=== PATIENT | male | born 1985 | race Caucasian/White ===

== ENCOUNTER 2017-01-29 15:15 | Emergency (ER) | payer BC, OTHER ==
[~2017-01-29] VITALS: Ht 167.6 cm; Wt 68.0 kg
[2017-01-29 15:25] VITALS: Ht 167.6 cm; Wt 68.0 kg
[2017-01-29] MEDS ORDERED: KETOROLAC 60 MG INJ IM STA (16:14)
[2017-01-29] MEDS ORDERED: HYDROCODONE/APAP (10/325) TAB PO ONE (16:30)
[2017-01-29] MEDS ORDERED: TRAM50TA2 PO (16:44)
[2017-01-29] MEDS ORDERED: DOCU-144 PO (16:44)
[2017-01-29] MEDS ORDERED: HYDR25SU23 PR (16:44)
--- NOTE | 2017-01-29 16:48 | ERD ---
ER Documentation Chief Complaint Date/Time DATE: 01/29/17 TIME: 16:47 Chief Complaint rectal pain/bleeding x 5 days HPI This 31-year-old male presents with pain in his rectal area does have a small amount of bleeding which currently resolved. Intermittent history of hemorrhoids. Denies any fevers or vomiting or abdominal pain. Been treated surgically. He has never had need for incision or drainage ROS All systems reviewed and are negative except as per history of present illness. Medications Home Meds Active Scripts Docusate Sodium* (Colace*) 100 Mg Capsule, 100 MG PO BID, #60 CAP Prov:PATRIZIA MONSON MD 01/29/17 Tramadol HCl (Tramadol HCl) 50 Mg Tablet, 50 MG PO Q4 Y for PAIN, #20 TAB Prov:PATRIZIA MONSON MD 01/29/17 Hydrocortisone Acetate (Anusol-Hc) 25 Mg Supp.rect, 1 SUPP GA BID Y for HEMORROID PAIN/ITCHING, #12 SUPP.RECT Prov:PATRIZIA MONSON MD 01/29/17 PMhx/Soc Medical and Surgical Hx: pt denies Medical Hx, pt denies Surgical Hx Hx Alcohol Use: Yes (ocassional ) Hx Substance Use: No Hx Tobacco Use: Yes (1/2 per day) Smoking Status: Never smoker Physical Exam Vitals Vital Signs Date Time Temp Pulse Resp B/P Pulse Ox O2 Delivery O2 Flow Rate FiO2 01/29/17 15:25 98.0 112 18 132/74 96 Physical Exam Const: [] Alert, not ill-appearing. Head: Atraumatic Eyes: Normal Conjunctiva ENT: Normal External Ears, Nose and Mouth. Neck: Full range of motion..~ No meningismus. Resp: Clear to auscultation bilaterally Cardio: Regular rate and rhythm, no murmurs Abd: Soft, non tender, non distended. Normal bowel sounds. There is some tenderness on the inner rectal area with no active bleeding and no visible external hemorrhoids is no gross blood no fluctuance or erythema. Skin: No petechiae or rashes Back: No midline or flank tenderness Ext: No cyanosis, or edema Neur: Awake and alert Psych: Normal Mood and Affect Results 24 hrs Current Medications Medications (Trade) Dose Ordered Sig/Sara Route PRN Reason Start Time Stop Time Status Last Admin Dose Admin Ketorolac Tromethamine (Toradol) 60 mg ONCE STAT IM 01/29/17 16:14 01/29/17 16:15 DC 01/29/17 16:36 Acetaminophen/ Hydrocodone Bitart (Randall ()) 1 tab ONCE ONCE PO 01/29/17 16:30 01/29/17 16:31 DC 01/29/17 16:35 Procedures/MDM Patient appears to have some bleeding and pain from internal hemorrhoids signs or symptoms do not suggest perirectal abscess, thrombosed external hemorrhoids. Patient is advised to follow-up with surgeon for further evaluation management. Patient is requesting a shot for pain as is taking his friend's pain pills at home. Patient was given Toradol 60 mg IM and Randall 10 mg by mouth. She is a tramadol and Anusol and Colace at home and follow-up with primary doctor. Return for fevers, worsening blood, pain, new worsening symptoms or with primary care doctor and surgery as directed Departure Diagnosis: Primary Impression: Acute hemorrhoid Condition: Stable Patient Instructions: Hemorrhoids Referrals: ROSE DUNN MD, THOMAS MD Additional Instructions: See surgeon for further evaluation treatment. Return for fevers, worsening pain , new worsening symptoms. PATRIZIA MONSON MD January 29, 2017 16:48
== END 2017-01-29 16:55 | disposition home or self-care (01) ==
LOC: FTE 15:15
DX: K64.8 Other hemorrhoids (principal); F17.210 Nicotine dependence, cigarettes, uncomplicated
CPT/HCPCS: J1885; Z7610